=== PATIENT | male | born 1980 | race Caucasian/White ===

== ENCOUNTER 2019-11-24 07:49 | Outpatient (CLI) | payer BC ==
--- NOTE | 2019-11-24 09:33 | ULT ---
ULTRASOUND ABDOMEN: HISTORY: Abnormal LFTs. COMPARISON: None. FINDINGS: Real-time, patterson scale, and color evaluation of the abdomen was performed. Mild diffuse increased hepatic echotexture. Gallbladder wall thickness is normal. No pericholecysti c fluid. No cholelithiasis. The liver measures 16.1 cm in length. The right kidney measures 10.9 x 5.9 x 5.8 cm without mass, hy dronephrosis, or abnormal calcifications. The left kidney measures 11.2 x 6 x 6.7 cm without mass, h ydronephrosis, or abnormal calcifications. The spleen measures 10.6 cm in length. IMPRESSION: 1. Diffuse hepatic steatosis. 2. No cholelithiasis or cholecystitis. 3. No evidence for obstructive uropathy. POS: HOME
== END 2019-11-24 07:50 | disposition home or self-care (01) ==
LOC: SCSULT 07:49
PROVIDERS: ATTEND Family Medicine
DX: N18.9 Chronic kidney disease, unspecified (principal); R79.89 Other specified abnormal findings of blood chemistry; K76.0 Fatty (change of) liver, not elsewhere classified
CPT/HCPCS: 93975

== ENCOUNTER 2024-01-08 08:14 | Day surgery (SDC) | payer BC ==
[2024-01-08 08:37] LABS: #Basophils 0.03 10x3/uL (0.0-0.2); %Basophils 0.4 % (0.0-1.0); %Eosinophils 2.6 % (0.0-10.0); %Lymphocytes 31.6 % (21.0-51.0); %Monocytes 10.8 % (0.0-10.0); %Neutrophils 54.4 % (42.0-75.0); Hematocrit 49.4 % (42.0-52.0); Hemoglobin 16.3 g/dL (14.0-18.0); Mean Corpuscular Hemoglobin 31.8 pg (27.0-31.0); Mean Corpuscular Volume 96.3 fL (78.0-98.0); Mean Platelet Volume 9.8 fL (7.4-10.4); Platelet Count 220 10x3/uL (130-400); Red Blood Cell (RBC) Count 5.13 mill/uL (4.70-6.10)
[2024-01-08 08:50] LABS: PTT 26.4 sec (22.9-36.1); Prothrombin Time 13.1 sec (12.0-14.7)
[2024-01-08] MEDS ORDERED: Midazolam HCl 2 mg/2 ml Vial ONE (09:32)
[2024-01-08] MEDS ORDERED: fentaNYL 50 mcg/mL 1 mL Vial ONE (09:32)
[2024-01-08] MEDS ORDERED: Sodium Bicarbonate 2.5 MEQ/5 ML SDV ONE (09:33)
[2024-01-08] MEDS ORDERED: FLU (Fluarix Triv) TS24-25(6MOS UP)/PF 45 MCG/0.5 ML Syringe IM ONE (12:00)
== END 2024-01-08 14:25 | disposition home or self-care (01) ==
LOC: CT 08:14
PROVIDERS: ATTEND Internal Medicine Nephrology
PROC: 0TB13ZX Excision of Left Kidney, Percutaneous Approach, Diagnostic (ICD-10-PCS; principal; 2024-01-08)
DX: N28.81 Hypertrophy of kidney (principal); N18.30 Chronic kidney disease, stage 3 unspecified; Z79.899 Other long term (current) drug therapy
CPT/HCPCS: 50200; 77012; 85025; 85610; 85730; 88329; 99152; 99153; J2250; J3010